=== PATIENT | female | born 1955 | race Two or more races ===

== ENCOUNTER → 2020-10-07 | Emergency (ER) | payer OTHER ==
[~2020-10-07] VITALS: Ht 154.9 cm; Wt 65.8 kg
[~2020-10-07] MED LIST: VASOTEC5 MG PO; ZESTRIL10 M1 PO
== END | disposition home or self-care (01) ==
LOC: ER 17:58
DX: M62.838 Other muscle spasm (principal); M54.2 Cervicalgia